=== PATIENT | male | born 1955 | race Caucasian/White ===

== ENCOUNTER 2016-08-11 14:09 | Inpatient (IN) ==
--- NOTE | 2016-08-11 14:41 | Emergency Department Note ---
Disposition Clinical Impression: Arterial occlusion Disposition: Admitted As Inpatient Forms: ED Satisfaction Letter Extremity Problem HPI - General Chief complaint: ED Extremity Problem,Nontraumatic Stated complaint: R leg pain, no pulse Time Seen by Provider: 08/11/16 14:19 Source: patient, EMS Limitations: no limitations Nursing Notes Reviewed: Yes Vital Signs Reviewed: Yes - History of Present Illness HPI Narrative: Patient presents to the complaint of acute onset left lower extremity numbness and cold limb. Patient states that he noticed that he became cold yesterday. Patient denies prior history of similar symptoms. Patient was seen at the [facility] and had ABIs done and no flow was noted the left lower extremity. Patient denies chest pain denies shortness of breath associated with this. Pain Scale: 2 - Related Data Allergies Allergy/AdvReac Type Severity Reaction Status Date / Time No Known Allergies Allergy Verified 08/11/16 01:35 All systems ED: reviewed and negative except as stated. Past Medical History - Past Medical History Source: patient Medical history: Reports: other Psychiatric history: Reports: no psych history - Social History Smoking Status: Current every day smoker Smokeless Tobacco Status: No Alcohol use: Reports: none Drug use: Reports: marijuana Physical Exam - General Limitations: no limitations General appearance: alert, in no apparent distress - Head Head exam: atraumatic, normocephalic, normal inspection - Eye Eye exam: Present: normal appearance, PERRL, EOMI - ENT ENT exam: normal exam, normal oropharynx, mucous membranes moist - Neck Neck exam: Present: normal inspection, full ROM, trachea midline - Chest Chest inspection: Present: normal inspection, symmetric chest wall rise - Respiratory Respiratory exam: Present: normal lung sounds bilaterally - Cardiovascular Cardiovascular exam: Present: regular rate, normal rhythm, normal heart sounds - Abdominal Exam Abdominal exam: Present: soft, Non-Tender. Absent: tenderness, distention, guarding, rebound, rigidity - Extremities Exam Extremities exam: Present: other (Dorsalis pedis pulse was not palpable in the left lower extremity. Cap refill is delayed and the limb is cold on The left lower extremity) - Back Exam Back exam: Present: normal inspection, full ROM. Absent: tenderness - Neurological Exam Neurological exam: Present: alert, oriented X3 - Psychiatric Psychiatric exam: Present: normal affect, normal mood - Skin Skin exam: Present: warm, dry, intact, normal color Course - Consultations Consultation #1: Dr. Bruce saw the patient and agrees to admit Vital Signs Temperature 98 F 08/11/16 14:20 Pulse Rate 63 08/11/16 14:20 Respiratory Rate 16 08/11/16 14:20 Blood Pressure 177/87 08/11/16 14:20 O2 Sat by Pulse Oximetry 96 08/11/16 14:20 Temperature 98 F 08/11/16 14:20 Pulse Rate 63 08/11/16 14:20 Respiratory Rate 16 08/11/16 14:20 Blood Pressure 177/87 08/11/16 14:20 O2 Sat by Pulse Oximetry 96 08/11/16 14:20 Oxygen Delivery Oxygen Delivery Room Air Extremity Problem, Nontraumati - Differential Diagnosis Likely: cellulitis, lower extremity edema, compartment syndrome, occult trauma, arterial vascular disorder - Lab Data Result diagrams: 08/11/16 14:43 08/11/16 14:43 Lab Results 08/11/16 08/11/16 08/11/16 Range/Units 14:43 14:43 14:43 WBC 14.0 H (4.3-11.1) K/mcL RBC 5.34 (4.19-5.50) M/mcL Hgb 16.9 (12.9-16.9) g/dL Hct 49.4 (37.5-50.1) % MCV 92.5 (83.0-100.0) fL MCH 31.6 (28.0-33.3) pg MCHC 34.2 (31.6-35.5) g/dL RDW 13.3 (11.5-14.5) % Plt Count 238 (140-400) K/mcL MPV 10.5 (9.4-12.4) fL Immature Gran % 0.4 (0-4) % Seg Neutrophils % 78.8 % Lymphocytes % 13.1 % Monocytes % 6.8 % Eosinophils % 0.6 % Basophils % 0.3 % Neutrophils # 11.1 H (1.6-8.9) K/mcL Lymphocytes # 1.8 (0.6-4.6) K/mcL Monocytes # 1.0 (0.0-1.3) K/mcL Eosinophils # 0.1 (0.0-0.6) K/mcL Basophils # 0.0 (0.0-0.2) K/mcL Sodium 142 (136-145) mEq/L Potassium 4.3 (3.5-4.5) mEq/L Chloride 104 (98-109) mEq/L Carbon Dioxide 28 (19-29) mEq/L BUN 11 (8-26) mg/dL Creatinine 0.84 (0.72-1.25) mg/dL Est GFR ( Amer) > 60 (> 60) Est GFR (Non-Af Amer) > 60 (> 60) BUN/Creatinine Ratio 13 (6-26) Glucose 92 (70-99) mg/dL Calculated Osmolality 293 (280-300) Lactic Acid 1.1 (0.5-2.2) mmol/L Calcium 10.5 (8.6-10.8) mg/dL Total Bilirubin 0.5 (0.2-1.2) mg/dL AST 17 (5-34) Units/L ALT 14 (0-55) Units/L Alkaline Phosphatase 97 (38-126) Units/L Creatine Kinase 125 (30-200) Units/L Serum Total Protein 7.9 (6.0-8.3) g/dL Albumin 4.7 (3.5-5.0) g/dL Globulin 3.2 (2.4-3.5) g/dL Albumin/Globulin Ratio 1.5 (1.1-2.2) - EKG Data EKG attestation: Yes I reviewed and interpreted this EKG. EKG shows normal: sinus rhythm Rate: normal Rhythm: NSR Critical Care Time Total Critical Care Time: 30 Attestation: Critical care performed: Time is exclusive of separately billable procedures. Time includes: direct patient care, patient reassessment, coordination of patient care, interpretation of data (laboratory data, radiology data, and respiratory data), review of patient's medical records, medical consultation and documentation of patient care. Procedures included in critical care time: Procedures excluded from critical care time:
[2016-08-11 14:52] LABS: Basophils % 0.3 %; Eosinophils # 0.1 K/mcL (0.0-0.6); Eosinophils % 0.6 %; Hematocrit 49.4 % (37.5-50.1); Hemoglobin 16.9 g/dL (12.9-16.9); Immature Granulocytes % 0.4 % (0-4); Lymphocytes # 1.8 K/mcL (0.6-4.6); Lymphocytes % 13.1 %; Mean Corpuscular HGB Conc 34.2 g/dL (31.6-35.5); Mean Corpuscular Hemoglobin 31.6 pg (28.0-33.3); Mean Corpuscular Volume 92.5 fL (83.0-100.0); Mean Platelet Volume 10.5 fL (9.4-12.4); Monocytes % 6.8 %; Neutrophils # 11.1 K/mcL (1.6-8.9); Platelet Count 238 K/mcL (140-400); Red Blood Count 5.34 M/mcL (4.19-5.50); Red Cell Distribution Width 13.3 % (11.5-14.5); Segmented Neutrophils % 78.8 %
[2016-08-11 15:07] LABS: Alanine Aminotransferase 14 Units/L (0-55); Albumin 4.7 g/dL (3.5-5.0); Albumin/Globulin Ratio 1.5 (1.1-2.2); Alkaline Phosphatase 97 Units/L (38-126); Aspartate Amino Transferase 17 Units/L (5-34); BUN/Creatinine Ratio 13 (6-26); Bilirubin,Total 0.5 mg/dL (0.2-1.2); Blood Urea Nitrogen 11 mg/dL (8-26); Calcium 10.5 mg/dL (8.6-10.8); Carbon Dioxide 28 mEq/L (19-29); Chloride 104 mEq/L (98-109); Creatine Kinase 125 Units/L (30-200); Globulin 3.2 g/dL (2.4-3.5); Glucose 92 mg/dL (70-99); Osmolality,Calculated 293 (280-300); Potassium 4.3 mEq/L (3.5-4.5); Sodium 142 mEq/L (136-145); Total Protein 7.9 g/dL (6.0-8.3); eGFR For African Americans > 60 (> 60); eGFR For Non-African Americans > 60 (> 60)
--- NOTE | 2016-08-11 16:14 | Vascular/Endovascular H&P ---
Date of Encounter: 08/11/16 Time of Encounter: 16:00 Assessment and Plan (1) Ischemia of left lower extremity Current Visit: Yes Status: Acute With an absent femoral pulse and previous claudication, I believe this is acute on chronic ischemia. He will be admitted and placed on weight dose IV heparin and we will obtain a CTA aortogram with runoff for operative planning. We had an initial discussion about the risk of amputation and smoking cessation History of Present Illness Chief complaint: Left leg is numb HPI: Mr. Solano is a 61 year old male Who has complained about nonspecific claudication for some time. No previous vascuar surgery He noted that his foot was numb last evening and sought evaluation at the [facility]. No blood flow was noted in the left leg with an SHIVANI of zero on the left and 1.07 on the right. He states he had constant pain on the dorsum of the left foot and the medial aspect of the left calf. He smokes 1.5 ppd, greater than 60 pack years. No diabetes. No ulcers on the foot , No hair below the mid-calf Past Med Surg Social Fam HX - Past Medical History Medical history: other (admission for staph infection a few years ago) Psychiatric history: no psych history - Social History Smoking Status: Current every day smoker Smokeless Tobacco Status: No Alcohol use: none Drug use: marijuana Medications and Allergies Allergies No Known Allergies Allergy (Verified 08/11/16 01:35) All Systems Review: A 10-system review of systems was performed and is negative for pertinent findings except as documented above in the HPI. He denies shakes, chills, or fevers. He denies chest pain or breathing problems. He denies infectious disorders such as HIV, hepatitis or tuberculosis Exam Vital Signs, Last 4 Hours Temp Pulse Resp BP Pulse Ox 08/11/16 14:20 98 F 63 16 177/87 96 General: Present: Conversant, No Apparent Distress HEENT: Present: Atraumatic, Normocephaly, Pupils equal Cardiac: Present: Reg Rate and Rhythm, Normal S1 and S2, No Murmur Lungs: Present: Other (bilateral mild rhonchi) Neuro: Present: Alert and responsive, No focal deficits noted, Other ( proprioception of the left great toe is intact) Abdomen: Present: Soft, Non-tender Vascular: Present: Pulse, absent (left femoral and distal. left foot is cool. Right femoral and posterior tibial are normal) Skin: Present: No rashes noted on visualized skin Musculoskeletal: Present: No Chest Wall Tenderness Results 08/11/16 14:43 08/11/16 14:43 Lab Results, Last 24 hours 08/11/16 08/11/16 14:43 14:43 WBC 14.0 H Hgb 16.9 Hct 49.4 Plt Count 238 Sodium 142 Potassium 4.3 Chloride 104 Carbon Dioxide 28 BUN 11 Creatinine 0.84 Glucose 92 Calcium 10.5 Total Bilirubin 0.5 AST 17 ALT 14 Alkaline Phosphatase 97
[2016-08-11] MEDS ORDERED: *HR* OxyCODONE/APAP 10/325 TABLET PO ONE ×2 (16:27→19:00)
[2016-08-11] MEDS ORDERED: *HR* Heparin 5,000 UNIT/ML VIAL IVP PRN ×3 (16:28→19:00)
[2016-08-11] MEDS ORDERED: *HR* Heparin 5,000 UNIT/ML VIAL IVP ONE ×2 (16:28→19:00)
[2016-08-11] MEDS ORDERED: 0.9 % Sodium Chloride 1,000 ML IVC SCH (16:30)
[2016-08-11] MEDS ORDERED: Heparin 25,000 UNIT/500 ML D5W 25,000 UNIT/500 ML MLS IVC SCH (16:30)
[2016-08-11 16:50] LABS: Hematocrit 47.6 % (37.5-50.1); Hemoglobin 16.5 g/dL (12.9-16.9); Mean Corpuscular HGB Conc 34.7 g/dL (31.6-35.5); Mean Corpuscular Hemoglobin 31.8 pg (28.0-33.3); Mean Corpuscular Volume 91.7 fL (83.0-100.0); Mean Platelet Volume 10.7 fL (9.4-12.4); Platelet Count 233 K/mcL (140-400); Red Blood Count 5.19 M/mcL (4.19-5.50); Red Cell Distribution Width 13.2 % (11.5-14.5)
[2016-08-11 16:56] LABS: INR 1.2; Prothrombin Time 12.8 Seconds (9.4-12.1)
[2016-08-11 16:59] LABS: Activated Partial Thrombo Time 29.3 Seconds (26.0-36.0)
--- NOTE | 2016-08-11 17:46 | Arterial Study Report ---
LE Arterial Duplex Patient Name:Shukri Solano Order Number:[id number] Procedure Date:08/11/2016 Date:1955ge:61 yrs Gender:Male Rt.BP:177 / 87 mmHgHeart Rate: Location:[facility] ED Room #: ED7 Product Marketing Manager:Juliet Acosta RDCS Referring MD:Omar Gray MD obstetrics gyn:[facility] Cruz MD:Kunal Manzano MD Primary Indications:No Pulse LLE Risk Factors Yes/No Smoking Current Yes Impressions: The left lower extremity is hemodynamically well maintained. No stenosis detected. Recommendations: Test completed on 08/11/2016 at 3:42:00 pm. Critical findings reported to Dr Gray in person at 3:45:00 pm on 08/11/2016 by Juliet Acosta RDCS. Findings Prior Study: No prior study available for comparison. LE Duplex Side Vessel PSV EDV Assessment Left Distal External Iliac 21 6 Left Common Femoral 32 11 Left Prox Superficial Femoral 27 11 Left Mid Superficial Femoral 27 8 Left Popliteal 14 5 Left Distal Superficial Femoral 19 6 Left Distal Posterior Tibial 5 3 Left Distal Peroneal 4 3 Updated by Kunal Manzano MD on 08/11/2016 5:41:12 PM electronically signed on 08/11/2016 5:41:27 PM with status of Final
[2016-08-11] MEDS: 0.9 % Sodium Chloride 1,000 ML IVC SCH (20:28)
[2016-08-11] MEDS: Heparin 25,000 UNIT/500 ML D5W 25,000 UNIT/500 ML MLS IVC SCH (20:29)
[2016-08-11] MEDS: *HR* Heparin 5,000 UNIT/ML VIAL IVP PRN (23:10)
[2016-08-12] MEDS: 0.9 % Sodium Chloride 1,000 ML IVC SCH ×2 (02:46→11:45)
[2016-08-12] MEDS: *HR* HYDROmorphone (PF) 1 MG/ML SYRINGE IVP PRN ×4 (04:45→14:48)
--- NOTE | 2016-08-12 07:33 | General Surgery Progress Note ---
<Jason De La Fuente - Last Filed: 08/12/16 08:21> Date of Encounter: 08/12/16 Time of Encounter: 07:25 - Assessment and Plan (1) Ischemia of left lower extremity Current Visit: Yes Status: Acute Absent femoral pulse on the left. CTA aortogram with runoff demonstrated left common iliac and external iliac arterial occlusion with reconstitution of the common femoral artery and occlusion of the left popliteal artery. Planned vascular surgery at 5pm today of left iliac thrombectomy with stent and possible fem-fem bypass. Additionally any necessary procedure to restore blood flow to the left leg. The heparin drip is not to be stopped prior to going to the OR. He is to remain on the heparin drip with weight base dosing. NPO for surgery. Procedure with risks explained to the patient and consent signed. Subjective Patient reports: feels better, still having pain, pain is less, voiding w/o difficulty, afebrile Narrative: Pain has improved, patient still reports some coolness of the left lower extremity with decreased sensation and some numbness and tingling. Objective Vital Signs - Last 8 Hours Temp Pulse Resp BP Pulse Ox 08/12/16 07:01 97.9 F 68 16 185/94 96 08/12/16 04:18 97.8 F 56 16 164/83 96 Intake and Output 08/11/16 08/11/16 08/12/16 15:59 23:59 07:59 Intake Total 60 / 60 1130 / 1130 Output Total 525 / 525 600 / 600 Balance -465 / -465 530 / 530 Intake: IV Fluids 60 / 60 1130 / 1130 0.9 % Sodium Chloride 1, 1000 / 1000 000 ML @ 100 mls/hr IVC . Q10H BRETT Rx#:[id number] Heparin 25,000 UNIT/500 60 / 60 130 / 130 ML D5W 25,000 unit In 500 ml @ 14 UNIT/KG/HR 22.48 mls/hr IVC .[id number] BRETT Rx#:[id number] Output: Urine 525 / 525 600 / 600 Other: Weight 78.6 kg Blood Glucose* 111 Patient Weight 08/12/16 23:59 Weight 78.6 kg - General physical appearance well developed, well nourished, no distress - Eyes normal ocular movement - ENT normal mucosa - Neck Neck exam: trachea midline - Respiratory normal respiratory effort, clear to auscultation - Cardiovascular Cardiovascular exam: Present: RRR - Abdomen Abdomen: Present: bowel sounds present, soft, non tender - Integumentary other (left foot appears more pale when lifted up onto the hospital bed than the right.) - Musculoskeletal normal posture - Psychiatric oriented to time, oriented to person, oriented to place, speech is normal, memory intact - Labs 08/11/16 16:42 08/11/16 14:43 - VTE Reasons for not Prescribing Prophylaxis: Not indicated-Anticoagulated or INR therapeutic Consult Discharge Plan - Plan Referrals: Jermaine Bruce MD [Partnered Physician] - (SENT WEB REQUEST ON 08-12-16 @ [id number]) [facility] [Primary Care Provider] - 08/27/16 9:30 am - Attending Attestation I examined this patient and my medical decision-making was reviewed with the PROPERTY VALUER/PA/Advanced Practice Nurse/Resident Physician. I agree with the documented findings, disposition and treatment plan as described except to the extent set forth below. <Jermaine Bruce - Last Filed: 08/12/16 14:52> Date of Encounter: 08/12/16 - Assessment and Plan (1) Ischemia of left lower extremity Current Visit: Yes Status: Acute Objective Vital Signs - Last 8 Hours Temp Pulse Resp BP Pulse Ox 08/12/16 12:00 98 F 83 16 160/91 96 08/12/16 11:00 98 F 83 16 160/91 96 08/12/16 07:30 97.9 F 68 16 185/94 96 08/12/16 07:01 97.9 F 68 16 185/94 96 Intake and Output 08/11/16 08/12/16 08/12/16 23:59 07:59 15:59 Intake Total 60 / 60 1130 / 1130 1137 / 1137 Output Total 525 / 525 900 / 900 250 / 250 Balance -465 / -465 230 / 230 887 / 887 Intake: IV Fluids 60 / 60 1130 / 1130 1137 / 1137 0.9 % Sodium Chloride 1, 1000 / 1000 1000 / 1000 000 ML @ 100 mls/hr IVC . Q10H BRETT Rx#:[id number] Heparin 25,000 UNIT/500 60 / 60 130 / 130 137 / 137 ML D5W 25,000 unit In 500 ml @ 14 UNIT/KG/HR 22.48 mls/hr IVC .[id number] BRETT Rx#:[id number] Oral 0 / 0 0 / 0 Output: Urine 525 / 525 900 / 900 250 / 250 Other: Meal NPO Percent of Meal Consumed 0% Weight 78.6 kg Blood Glucose* 111 106 Patient Weight 08/12/16 23:59 Weight 78.6 kg - Labs 08/11/16 16:42 08/11/16 14:43 - Attending Attestation Jermaine Bruce MD FACS
[2016-08-12] MEDS ORDERED: Lidocaine -MPF 4% 5 ML AMPUL ONE ×2 (10:28→16:45)
[2016-08-12] MEDS ORDERED: *HR* Phenylephrine 10 MG/ML VIAL ONE (10:32)
[2016-08-12] MEDS ORDERED: *HR* Succinylcholine 200 MG/10 ML VIAL IVP ONE ×2 (10:32→16:43)
[2016-08-12] MEDS ORDERED: Lidocaine -MPF 2% 2 ML VIAL ONE ×3 (10:34→16:59)
--- NOTE | 2016-08-12 10:45 | Anesthesia Evaluation PreOp ---
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 Other Medical History: Denies Any Significant HX Anesthesia History: No Prior Anesthetic Complications, Past Anesthesia Alcohol Use: none Drug use: marijuana Medications and Allergies No Known Home Drugs 08/11/16 [History] Allergies No Known Allergies Allergy (Verified 08/11/16 01:35) - Meds/Allergy Pre-op Review Medications Reviewed: Yes Allergies Reviewed: Yes Beta Blockers on Current Med List: No Anesthesia Results - Labs 08/11/16 16:42 08/11/16 14:43 - Imaging EKG: report reviewed (sr, pvc) Anesthesia Exam O2 Sat Height 1.78 m Weight 78.6 kg Weight 80.286 kg O2 Sat by Pulse Oximetry 96 O2 Sat by Pulse Oximetry 96 O2 Sat by Pulse Oximetry 96 O2 Sat by Pulse Oximetry 94 O2 Sat by Pulse Oximetry 91 O2 Sat by Pulse Oximetry 94 O2 Sat by Pulse Oximetry 94 O2 Sat by Pulse Oximetry 96 Vital Signs Temp Pulse Resp BP Pulse Ox 98 F 63 16 177/87 96 08/11/16 14:20 08/11/16 14:20 08/11/16 14:20 08/11/16 14:20 08/11/16 14:20 Height: 1.78 Weight: 78 NPO (# of Hours): >8 - HEENT Pupil (Motor): Pupils equal, EOMI Mallampati: II Teeth: Edentulous Oral Opening: Greater than 3 - 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
[2016-08-12] MEDS: *HR* Heparin 5,000 UNIT/ML VIAL IVP PRN (11:02)
[2016-08-12] MEDS: Heparin 25,000 UNIT/500 ML D5W 25,000 UNIT/500 ML MLS IVC SCH ×2 (11:58→23:56)
[2016-08-12 14:47] LABS: Activated Partial Thrombo Time 125.8 Seconds (26.0-36.0)
[2016-08-12 15:02] LABS: Heparin anti-factor XA UFH 0.8 IU/mL (0.30-0.70)
[2016-08-12] MEDS ORDERED: Water for inj. (sterile) 10 ML IV ONE (15:30)
[2016-08-12] MEDS ORDERED: Heparin 1,000 UNITS/500 mL NS 1,500 ML ONE (15:30)
[2016-08-12] MEDS ORDERED: *HR* FentaNYL (PF) 100 MCG/2 ML VIAL ONE ×2 (16:41→18:09)
[2016-08-12] MEDS ORDERED: *HR* Midazolam HCl 2 MG/2 ML VIAL ONE (16:41)
[2016-08-12] MEDS ORDERED: *HR* Propofol 200 MG/20 ML VIAL IVP ONE (16:42)
[2016-08-12] MEDS ORDERED: *HR* Rocuronium Bromide 50 MG/5 ML VIAL ONE (16:44)
[2016-08-12] MEDS ORDERED: NiCARdipine 2.5 MG/10 ML Syringe IVPB ONE (16:52)
[2016-08-12] MEDS ORDERED: EPHEDrine 50 MG/ML VIAL ONE (16:53)
[2016-08-12] MEDS ORDERED: Heparin 1,000 UNITS/500 mL NS 500 ML ONE (17:50)
[2016-08-12] MEDS ORDERED: *HR* Heparin 5,000 UNIT/ML VIAL ONE (18:02)
[2016-08-12] MEDS ORDERED: Dexamethasone 4 MG/ML VIAL ONE (18:21)
[2016-08-12] MEDS ORDERED: Ondansetron 4 MG/2 ML VIAL ONE (18:21)
[2016-08-12] MEDS ORDERED: Acetaminophen IV 1,000 MG/100 ML INFUS..BTL ONE (19:26)
[2016-08-12] MEDS ORDERED: *HR* HYDROmorphone 2 MG/ML SYRINGE ONE (19:59)
--- NOTE | 2016-08-12 20:15 | Operative Note ---
Date of procedure: 08/12/16 Pre-op diagnosis: Critical left lower leg ischemia Post-op diagnosis: other (#1 distal popliteal thrombus #2 occluded common and external iliac, left) Procedure: #1. Femoral tibial thrombectomy, left. #2. Left iliac thrombectomy and attempted angioplasty. #3. Left femoral endarterectomy. #4. Femoral-femoral bypass with 8 mm PTFE Implants: 8 mm externally supported PTFE graft Anesthesia: GETA Surgeon: Jermaine Bruce Estimated blood loss (cc): 100 Condition: stable Disposition: PACU Procedure in Detail: After informed consent the patient states major operative suite and placed supine position given adequate general endotracheal anesthesia. Horner catheter was placed. He was placed on the vascular bed for x-ray. Timeout was taken patient was identified. Both groins and circumferential left leg were prepped and draped in sterile fashion utilizing Betadine solution and sterile draping techniques. I made an oblique incision in the left groin and dissected down to be pulseless left femoral artery. I surrounded the common femoral, profunda femoris, and superficial femoral artery as well as the circumflex iliac collaterals. This was done with Guzman ligatures. The patient was given 2000 additional units of IV heparin in addition to his IV drip. I opened the artery axially. There was thrombus covering a ruptured femoral plaque just proximal to the profunda. This is heavily calcified. I performed a distal thrombectomy. Using a #4 and #3 Tonja catheter was able to pass the catheter all the way into the foot and I recovered thrombus on 2 passes. I had 2 passes with no thrombus area I instilled intra-arterial TPA. I then turned my attention to the iliac artery was able to advance a #4 Tonja catheter about 12 cm in the artery. I removed thrombus. I got some backbleeding from the internal iliac artery. I then placed a #7 sheath. Using fluoroscopy for guidance I then used 3 different wires to try and advance into the aorta. I used a combination of Glidewire, a Villasenor wire, and measurement wire all failed to advance into the aorta. I used all 3 wires alone and in conjunction with a guide catheter to try and probe the area of occlusion in the proximal common iliac artery. I was unable to gain access into the aorta after 30 minutes of attempted iliac. I aborted the procedure and the attempt to gain patency of the hamilton vessels. The 7-Iraqi introducer was removed. I opened the right groin with an oblique incision and dissected down to the right common femoral artery. This revealed the common femoral, superficial femoral, and profunda femoris with Guzman ligatures. I passed a 8 mm externally supported PTFE graft in the subfascial plane from right to left. The placement was perfect. I then addressed the complex hemorrhagic plaque in the left common femoral artery. Endarterectomy was performed. There were excellent break points the intima just proximal to the profunda and superficial femoral artery takeoffs and the intima was adherent and did not require any tacking stitches. I extended the arteriotomy well distal of the intima break point on the superficial femoral artery. Using 2.8x magnification, I performed an anastomosis between the PTFE graft and the left common femoral artery extending down on to the superficial femoral artery. This gave an excellent technical result. Prior to closure I back bled the profunda femoris and superficial femoral artery and got back bleeding from both. There was no evidence of thrombus. I tied the 5-0 Prolene and clamped the graft with a Tonja-Hydragrip clamp. Attention was then turned to the right groin. I brought the graft out to length. I opened the right common femoral artery area there was essentially no calcific plaque in this area. I created a cobra morillo on the PTFE graft and used 5-0 Prolene to create an anastomosis between the PTFE graft and the common femoral artery. Prior to closure all vessels were forward flushed and backbled. I closed the suture line then opened the right common femoral first to the profunda and then to the superficial femoral artery and finally to the femoral-femoral bypass graft. Doppler evaluation of the superficial femoral arteries demonstrated pulsatile blood flow in all measured vessels. All wounds were irrigated with copious amounts of antibiotic containing solution. All wounds were closed in multiple layers with interrupted Vicryl. The patient was transferred to recovery in stable condition
--- NOTE | 2016-08-12 21:27 | Anesthesia Evaluation Post Op ---
Date of Encounter: 08/12/16 Time of Encounter: 21:10 - Vital Signs Vital Signs: Vital Signs/O2 Sat/Glucose, Most Current Temp Pulse Resp BP Pulse Ox 08/12/16 21:10 98.2 F 80 16 152/78 92 L 08/12/16 21:00 98.2 F 83 16 158/77 95 08/12/16 20:50 84 16 149/77 95 08/12/16 20:40 86 16 160/80 96 08/12/16 20:30 98 F 117 16 157/83 96 - Lungs Lungs: Clear Ascult./Percussion - Airway Airway: Non-obstructed - Cardiovascular Baseline Rhythm - Mental Status Mental Status: Alert & Oriented, Answers Appropriately - Pain Pain Scale: 0 - Nausea Vomiting Nausea Vomiting: Not Present - Hydration Hydration: NPO - Discharge PostOp Status: Transfer Patient to floor
[2016-08-12] MEDS ORDERED: *HR* Heparin 5,000 UNIT/ML VIAL IVP PRN (21:43)
[2016-08-12 22:54] LABS: Activated Partial Thrombo Time 165.8 Seconds (26.0-36.0)
[2016-08-12 23:00] LABS: Heparin anti-factor XA UFH 0.96 IU/mL (0.30-0.70)
[2016-08-13] MEDS: ceFAZolin 2,000 MG in D5% in Water 100 ML IVPB SCH ×2 (00:11→07:33)
[2016-08-13] MEDS: *HR* HYDROmorphone (PF) 1 MG/ML SYRINGE IVP PRN ×8 (00:54→21:50)
[2016-08-13] MEDS: 0.9 % Sodium Chloride 1,000 ML IVC SCH ×3 (02:22→22:36)
[2016-08-13] MEDS: *HR* Heparin 5,000 UNIT/ML VIAL IVP PRN ×2 (06:03→15:00)
--- NOTE | 2016-08-13 07:36 | General Surgery Progress Note ---
<Jason De La Fuente - Last Filed: 08/13/16 13:30> Date of Encounter: 08/13/16 Time of Encounter: 07:05 - Assessment and Plan (1) Ischemia of left lower extremity Current Visit: Yes Status: Acute POD #1 left femoral tibial thrombectomy with left femoral endarterectomy and fem -fem bypass with 8mm PTFE. Continue Heparin drip today with transition to aspirin and plavix tomorrow. Patient orders to ambulate today. Discontinue conde. Regular diet ordered. The patient is on Ancef that is to be discontinued after 2 bags. Continue pain control. Subjective Patient reports: no new complaints, feels better, no flatus, no bowel movement, afebrile Objective Vital Signs - Last 8 Hours Temp Pulse Resp BP Pulse Ox 08/13/16 04:51 98.3 F 89 16 154/81 92 L 08/13/16 04:30 79 16 150/88 93 L 08/13/16 03:17 84 18 164/91 94 L 08/13/16 02:15 75 18 175/83 93 L 08/13/16 01:15 68 18 141/72 95 08/13/16 00:15 69 18 144/80 96 08/12/16 23:45 65 18 143/73 Intake and Output 08/12/16 08/12/16 08/13/16 15:59 23:59 07:59 Intake Total 1137 / 1137 100 / 100 257 / 257 Output Total 250 / 250 2325 / 2325 1150 / 1150 Balance 887 / 887 -2225 / -2225 -893 / -893 Intake: IV Fluids 1137 / 1137 100 / 100 257 / 257 0.9 % Sodium Chloride 1, 1000 / 1000 000 ML @ 100 mls/hr IVC . Q10H BRETT Rx#:[id number] Heparin 25,000 UNIT/500 137 / 137 100 / 100 157 / 157 ML D5W 25,000 unit In 500 ml @ 14 UNIT/KG/HR 22.48 mls/hr IVC .[id number] BRETT Rx#:[id number] Ancef 2,000 MG In 100 / 100 Dextrose 5% 100 ML @ 200 mls/hr IVPB Q8HR BRETT Rx#: [id number] Oral 0 / 0 Output: Urine 250 / 250 Estimated Blood Loss 100 / 100 Urine Amount (Catheter) 1575 / 1575 Catheter 650 / 650 1150 / 1150 Other: Weight 79.6 kg Blood Glucose* 78 128 Patient Weight 08/13/16 23:59 Weight 79.6 kg - General physical appearance well developed, well nourished, no distress - Eyes normal ocular movement - ENT normal mucosa - Neck Neck exam: trachea midline - Respiratory normal respiratory effort, clear to auscultation - Abdomen Abdomen: Present: bowel sounds present, soft, non tender - Integumentary no rash, other (bilateral dressings in the inguinal region, which are clean and dry. Expected reperfusion hyperemia of the left lower extremity.) - Neurologic CN 2-12 grossly intact - Musculoskeletal normal posture - Psychiatric oriented to time, oriented to person, oriented to place, speech is normal, memory intact - Labs 08/11/16 16:42 08/11/16 14:43 - VTE Reasons for not Prescribing Prophylaxis: Not indicated-Anticoagulated or INR therapeutic Consult Discharge Plan - Plan Additional Instructions: Followup with your scheduled outpatient appointment on 08/19/16 at 3:50pm. Referrals: Jermaine Bruce MD [Partnered Physician] - 08/19/16 3:50 pm () [place],PCP [Primary Care Provider] - 08/27/16 9:30 am Prescriptions: OxyCODONE/APAP 5/325 [Percocet 5/325 MG] 1 each PO Q6HR PRN #30 tablet PRN Reason: Pain Aspirin 81 mg PO DAILY #30 tab.chew Clopidogrel [Plavix] 75 mg PO DAILY #30 tablet Docusate [Colace] 100 mg PO BID #30 capsule - Attending Attestation I examined this patient and my medical decision-making was reviewed with the [employer]/PA/Advanced Practice Nurse/Resident Physician. I agree with the documented findings, disposition and treatment plan as described except to the extent set forth below. <Jermaine Bruce - Last Filed: 08/14/16 12:55> - Assessment and Plan (1) Ischemia of left lower extremity Current Visit: Yes Status: Acute Objective Vital Signs - Last 8 Hours Temp Pulse Resp BP Pulse Ox 08/14/16 11:16 98.6 F 73 18 125/73 95 08/14/16 11:03 16 97 08/14/16 08:49 72 08/14/16 07:33 98.7 F 81 18 135/73 96 Intake and Output 08/13/16 08/14/16 08/14/16 23:59 07:59 15:59 Intake Total 1860 / 1860 512 / 512 2270 / 2270 Output Total 450 / 450 2225 / 2225 600 / 600 Balance 1410 / 1410 -1713 / -1713 1670 / 1670 Intake: IV Fluids 1180 / 1180 272 / 272 30 / 30 0.9 % Sodium Chloride 1, 1000 / 1000 000 ML @ 100 mls/hr IVC . Q10H BRETT Rx#:[id number] Heparin 25,000 UNIT/500 180 / 180 272 / 272 30 / 30 ML D5W 25,000 unit In 500 ml @ 14 UNIT/KG/HR 22.48 mls/hr IVC .[id number] BRETT Rx#:[id number] Oral 680 / 680 240 / 240 2240 / 2240 Output: Urine 450 / 450 2225 / 2225 600 / 600 Other: Meal Dinner Breakfast Percent of Meal Consumed 100% 100% Weight 78.8 kg Blood Glucose* 95 111 93 Patient Weight 08/14/16 23:59 Weight 78.8 kg - Labs 08/14/16 09:24 08/11/16 14:43 - Attending Attestation The patient is seen and evaluated today. His leg is warm with good pulses. He is beginning to ambulate. Am very pleased with his overall clinical course. We will continue IV heparin today. We will plan on starting aspirin and Plavix tomorrow. If he is afebrile he will be able to be discharged tomorrow. Jermaine Bruce MD FACS
[2016-08-13] MEDS: Heparin 25,000 UNIT/500 ML D5W 25,000 UNIT/500 ML MLS IVC SCH (10:52)
--- NOTE | 2016-08-13 19:32 | Electrocardiograph Report ---
[address] [address] Test Date: 2016-08-11 Pat Name: Shukri Solano Department: 105 Room: 2N04 Gender: M Hematology Specialist: : [id number] Requested By: Omar Gray Order Number: [id number] Reading MD: Nakul Owens Measurements Intervals [place] Rate: 77 P: 63 IN: 179 QRS: 46 QRSD: 97 T: 63 QT: 378 QTc: 409 Interpretive Statements SINUS RHYTHM WITH OCCASIONAL VENTRICULAR PREMATURE COMPLEXES Electronically Signed On 08-13-2016 19:31:25 EST by Nakul Owens
[2016-08-14] MEDS: Heparin 25,000 UNIT/500 ML D5W 25,000 UNIT/500 ML MLS IVC SCH (06:01)
--- NOTE | 2016-08-14 08:12 | General Surgery Progress Note ---
Addendum entered and electronically signed by Jason De La Fuente DO 08/14/16 10: 49: chest x-ray did not demonstrate any acute cardiopulmonary process, but the patient had an elevated white count of 13.5. The patient was started on Ciprofloxacin 500mg BID started and additional testing of UA was ordered. Albuterol nebs q6 and incentive spirometry ordered. Original Note: <Jason De La Fuente - Last Filed: 08/14/16 08:10> Date of Encounter: 08/14/16 Time of Encounter: 06:40 - Assessment and Plan (1) Ischemia of left lower extremity Current Visit: Yes Status: Acute POD #2 left femoral tibial thrombectomy with left femoral endarterectomy and fem -fem bypass with 8mm PTFE. Transition to aspirin and plavix today. Heparin to be discontinued after the first dose of aspirin and plavix has been given. Patient orders to ambulate today. Regular diet ordered. Ancef has been discontinued. Continue pain control. (2) Fever Current Visit: Yes Status: Acute Tmax of 101.7 just after midnight on 08/14. Resolved at this time with current temperature of 99.6. Chest x-ray 2 view. CBC Continue to monitor. Qualifiers: Fever type: unspecified Qualified Code(s): R50.9 - Fever, unspecified Subjective Patient reports: no new complaints, still having pain, tolerating a regular diet , voiding w/o difficulty, flatus, no bowel movement, fever Narrative: The patient had a fever last night but denies any chills, nausea, or vomiting at that time. He states he continues to feel as if he is improving and has some soreness around the surgical sites. Objective Vital Signs - Last 8 Hours Temp Pulse Resp BP Pulse Ox 08/14/16 07:33 98.7 F 81 18 135/73 96 08/14/16 04:42 99.6 F 80 18 151/75 95 08/14/16 04:01 86 08/14/16 00:17 101.7 F H 98 16 140/64 93 L Intake and Output 08/13/16 08/14/16 08/14/16 23:59 07:59 15:59 Intake Total 1860 / 1860 512 / 512 Output Total 450 / 450 2225 / 2225 Balance 1410 / 1410 -1713 / -1713 Intake: IV Fluids 1180 / 1180 272 / 272 0.9 % Sodium Chloride 1, 1000 / 1000 000 ML @ 100 mls/hr IVC . Q10H BRETT Rx#:[id number] Heparin 25,000 UNIT/500 180 / 180 272 / 272 ML D5W 25,000 unit In 500 ml @ 14 UNIT/KG/HR 22.48 mls/hr IVC .[id number] BRETT Rx#:[id number] Oral 680 / 680 240 / 240 Output: Urine 450 / 450 2225 / 2225 Other: Meal Dinner Percent of Meal Consumed 100% Weight 78.8 kg Blood Glucose* 95 111 Patient Weight 08/14/16 23:59 Weight 78.8 kg - General physical appearance well developed, well nourished, no distress - Eyes normal ocular movement - ENT normal mucosa - Neck Neck exam: trachea midline - Respiratory normal respiratory effort, clear to auscultation - Cardiovascular Cardiovascular exam: Present: RRR - Abdomen Abdomen: Present: bowel sounds present, soft, non tender - Incision Incision: Present: clean and dry, intact - Genitourinary other (Scrotal hematoma present) - Integumentary no rash - Neurologic CN 2-12 grossly intact - Musculoskeletal normal posture - Psychiatric oriented to time, oriented to person, oriented to place, speech is normal, memory intact - Labs 08/11/16 16:42 08/11/16 14:43 - VTE Reasons for not Prescribing Prophylaxis: Not indicated-Anticoagulated or INR therapeutic Consult Discharge Plan - Plan Additional Instructions: Followup with your scheduled outpatient appointment on 08/19/16 at 3:50pm. Referrals: Jermaine Bruce MD [Partnered Physician] - 08/19/16 3:50 pm () [place],PCP [Primary Care Provider] - 08/27/16 9:30 am Prescriptions: OxyCODONE/APAP 5/325 [Percocet 5/325 MG] 1 each PO Q6HR PRN #30 tablet PRN Reason: Pain Aspirin 81 mg PO DAILY #30 tab.chew Clopidogrel [Plavix] 75 mg PO DAILY #30 tablet Docusate [Colace] 100 mg PO BID #30 capsule <Jermaine Bruce - Last Filed: 08/14/16 13:06> - Assessment and Plan (1) Ischemia of left lower extremity Current Visit: Yes Status: Acute The patient was seen and evaluated with the resident on morning rounds. Since his temperature was 101.5 last evening I have recommended a chest x-ray as well as follow-up urinalysis. His white blood cell count was slightly elevated. Because of Lejunior-Jose graft material being placed 48 hours ago, of recommended starting ciprofloxacin to protect the graft. It is noted that he also has some scrotal hematoma. I did have to tunnel the graft while the patient was heparinized. Because of this he may have a small retroperitoneal hematoma in this may have resulted in his fever and leukocytosis. We will watch him closely over the next several days. Jermaine Bangura MD FACS Objective Vital Signs - Last 8 Hours Temp Pulse Resp BP Pulse Ox 08/14/16 11:16 98.6 F 73 18 125/73 95 08/14/16 11:03 16 97 08/14/16 08:49 72 08/14/16 07:33 98.7 F 81 18 135/73 96 Intake and Output 08/13/16 08/14/16 08/14/16 23:59 07:59 15:59 Intake Total 1860 / 1860 512 / 512 2270 / 2270 Output Total 450 / 450 2225 / 2225 600 / 600 Balance 1410 / 1410 -1713 / -1713 1670 / 1670 Intake: IV Fluids 1180 / 1180 272 / 272 30 / 30 0.9 % Sodium Chloride 1, 1000 / 1000 000 ML @ 100 mls/hr IVC . Q10H BRETT Rx#:[id number] Heparin 25,000 UNIT/500 180 / 180 272 / 272 30 / 30 ML D5W 25,000 unit In 500 ml @ 14 UNIT/KG/HR 22.48 mls/hr IVC .[id number] BRETT Rx#:[id number] Oral 680 / 680 240 / 240 2240 / 2240 Output: Urine 450 / 450 2225 / 2225 600 / 600 Other: Meal Dinner Breakfast Percent of Meal Consumed 100% 100% Weight 78.8 kg Blood Glucose* 95 111 93 Patient Weight 08/14/16 23:59 Weight 78.8 kg - Labs 08/14/16 09:24 08/11/16 14:43
[2016-08-14] MEDS: Aspirin 81 MG TAB.CHEW PO SCH (08:35)
--- NOTE | 2016-08-14 09:02 | Discharge Summary ---
<Jason De La Fuente - Last Filed: 08/14/16 10:52> - Discharge Diagnosis (1) Ischemia of left lower extremity Priority: Primary Status: Acute (2) Fever Priority: Secondary Status: Acute Qualifiers: Fever type: unspecified Qualified Code(s): R50.9 - Fever, unspecified - Discharge Medications Prescriptions: OxyCODONE/APAP 5/325 [Percocet 5/325 MG] 1 each PO Q6HR PRN #30 tablet PRN Reason: Pain Aspirin 81 mg PO DAILY #30 tab.chew Clopidogrel [Plavix] 75 mg PO DAILY #30 tablet Docusate [Colace] 100 mg PO BID #30 capsule Home Medications: Aspirin 81 mg PO DAILY #30 tab.chew 08/14/16 [Rx] Clopidogrel [Plavix] 75 mg PO DAILY #30 tablet 08/14/16 [Rx] Docusate [Colace] 100 mg PO BID #30 capsule 08/14/16 [Rx] OxyCODONE/APAP 5/325 [Percocet 5/325 MG] 1 each PO Q6HR PRN #30 tablet 08/14/16 [Rx] Allergies/Adverse Reactions: Allergies No Known Allergies Allergy (Verified 08/11/16 01:35) General Surgery Exam Initial Vital Signs Temp Pulse Resp BP Pulse Ox 98 F 63 16 177/87 96 08/11/16 14:20 08/11/16 14:20 08/11/16 14:20 08/11/16 14:20 08/11/16 14:20 - General physical appearance well developed, well nourished, no distress - Eyes PERRL, normal ocular movement - ENT normal mucosa - Neck trachea midline - Respiratory normal respiratory effort, clear to auscultation - Cardiovascular Cardiovascular exam: Present: RRR - Abdomen Abdomen general surgery: Present: bowel sounds present, soft, non tender - Incision Incision: Present: clean and dry, intact - Genitourinary Present: other (scrotal hematoma present) - Integumentary Integumentary general surgery: Present: warm and dry - Neurologic Present: CN 2-12 grossly intact, normal coordination, normal sensation - Musculoskeletal Present: normal gait, normal posture - Psychiatric Psychiatric general surgery: Present: appropriate, oriented to person, oriented to place, oriented to time, speech is normal, memory intact Date of admission: 08/11/16 17:14 Primary care physician: PCP [place] - Patient Status Disposition: Home, Self-Care Condition: Good Overall status at discharge: patient is back to baseline - Discharge Instructions Instructions: Oxycodone/Acetaminophen (By mouth), Aspirin (By mouth), Laxative , Stool Softeners (By mouth), Clopidogrel (By mouth), Femoropopliteal Bypass (DC ) Follow Up With: Jermaine Bruce MD [Partnered Physician] - 08/19/16 3:50 pm () [place],PCP [Primary Care Provider] - 08/27/16 9:30 am Additional Instructions: Followup with your scheduled outpatient appointment on 08/19/16 at 3:50pm. - Diet and Activity Activity: increase activity as tolerated Diet: advance to your usual diet - Hospital Course Hospital course: Mr. Solano is a 61 year old male with a history of nonspecific claudication. He had never had any vascular surgeries prior to admission. This left foot became numb on 08/10 [facility] He was found to have no blood flow in the left leg with an SHIVANI of zero on the left and 1.07 on the right. He complained of constant pain on the dorsum of the left foot and the medial aspect of the left calf. 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 He underwent left femoral tibial thrombectomy with left femoral endarterectomy and fem-fem bypass with 8mm PTFE on 08/12. He has been progressing well, but was found to have a fever with Tmax of 101.7 just after midnight on 08/14. CBC and chest x-ray 2 views were ordered and showed elevated white count of 13.5 with no acute cardiopulmonary process. The patient was started on Ciprofloxacin 500mg BID started and additional testing of UA was ordered. Albuterol nebs q6 and incentive spirometry ordered. - Time Spent with Patient Total time spent providing and/or coordinating discharge services: Labs on day of discharge: Labs from last 24 hours 08/14/16 08/13/16 08/13/16 03:30 20:07 20:03 APTT 46.4 H D 106.4 H D POC Glucose 95 H 08/13/16 08/13/16 08/13/16 16:31 12:28 11:07 APTT 38.1 H POC Glucose 85 90 H 08/13/16 07:23 APTT POC Glucose 128 H - Impressions ITS Impressions Fluoroscopy 08/12/16 18:17 IMPRESSION: Intraprocedural fluoroscopic spot images as above. See separate procedure report for more information. D/ /12/2016 21:49:46 Christopher Sharp MD / cain Interpreting Provider: Christopher Sharp MD Pelvis X-Ray 08/12/16 18:17 IMPRESSION: Intraprocedural fluoroscopic spot images as above. See separate procedure report for more information. D/ /12/2016 21:49:46 Christopher Sharp MD / cain Interpreting Provider: Christopher Sharp MD <Kunal Manzano - Last Filed: 08/15/16 14:51> Date of Encounter: 08/15/16 Time of Encounter: 14:00 - Discharge Diagnosis (1) Ischemia of left lower extremity Status: Acute Comments: The patient underwent left lower extremity thrombectomy and FEM-FEM bypass. He is afebrile, comfortable and without complaints. His incisions are clean, dry and intact without erythema or drainage. He will be discharged today. General Surgery Exam Initial Vital Signs Temp Pulse Resp BP Pulse Ox 98 F 63 16 177/87 96 08/11/16 14:20 08/11/16 14:20 08/11/16 14:20 08/11/16 14:20 08/11/16 14:20 Date of admission: 08/11/16 17:14 [facility] care [facility] Discharging clinician: Jermaine Bruce Anticipated date of discharge: 08/15/16 - Patient Status Overall status at discharge: patient is back to baseline - Diet and Activity Activity: increase activity as tolerated Diet: advance to your usual diet - Hospital Course Hospital course: Mr. Solano is a 61 year old male - Time Spent with Patient Total time spent providing and/or coordinating discharge services: Labs on day of discharge: Labs from last 24 hours 08/15/16 08/14/16 08/14/16 06:31 20:39 16:14 WBC 13.0 H RBC 4.25 Hgb 13.7 Hct 40.0 MCV 94.1 MCH 32.2 MCHC 34.3 RDW 13.2 Plt Count 163 MPV 11.5 Immature Gran % 0.5 Seg Neutrophils % 78.3 Lymphocytes % 8.7 Monocytes % 11.9 Eosinophils % 0.4 Basophils % 0.2 Neutrophils # 10.2 H Lymphocytes # 1.1 Monocytes # 1.6 H Eosinophils # 0.1 Basophils # 0.0 POC Glucose 104 H 109 H Urine Color Urine Clarity Urine pH Ur Specific Thayer Urine Protein Urine Glucose (UA) Urine Ketones Urine Blood Urine Nitrite Urine Bilirubin Urine Urobilinogen Ur Leukocyte Esterase Ur Culture Indicated? 08/14/16 08/14/16 08/14/16 14:46 11:15 07:37 WBC RBC Hgb Hct MCV MCH MCHC RDW Plt Count MPV Immature Gran % Seg Neutrophils % Lymphocytes % Monocytes % Eosinophils % Basophils % Neutrophils # Lymphocytes # Monocytes # Eosinophils # Basophils # POC Glucose 93 H 111 H Urine Color Yellow Urine Clarity Clear Urine pH 6.5 Ur Specific Thayer 1.013 Urine Protein Negative Urine Glucose (UA) Normal Urine Ketones Negative Urine Blood Negative Urine Nitrite Negative Urine Bilirubin Negative Urine Urobilinogen 2.0 H Ur Leukocyte Esterase Negative Ur Culture Indicated? NO - Impressions ITS Impressions Fluoroscopy 08/12/16 18:17 IMPRESSION: Intraprocedural fluoroscopic spot images as above. See separate procedure report for more information. D/ /12/2016 21:49:46 Christopher Sharp MD / cain Interpreting Provider: Christopher Sharp MD Pelvis X-Ray 08/12/16 18:17 IMPRESSION: Intraprocedural fluoroscopic spot images as above. See separate procedure report for more information. D/ /12/2016 21:49:46 Christopher Sharp MD / earnold Interpreting Provider: Christopher Sharp MD Chest X-Ray 08/14/16 08:05 IMPRESSION: No acute cardiopulmonary process. D/ / Bam Wells MD / Bam Wells MD Interpreting Provider: Bam Wells MD
[2016-08-14 09:34] LABS: Basophils % 0.2 %; Eosinophils % 0.1 %; Immature Granulocytes % 0.4 % (0-4); Immature Platelets 5.7 % (1.1-6.1); Lymphocytes # 0.9 K/mcL (0.6-4.6); Lymphocytes % 6.4 %; Mean Corpuscular HGB Conc 34.5 g/dL (31.6-35.5); Mean Corpuscular Hemoglobin 32.5 pg (28.0-33.3); Mean Corpuscular Volume 94.3 fL (83.0-100.0); Mean Platelet Volume 10.7 fL (9.4-12.4); Monocytes % 7.4 %; Neutrophils # 11.6 K/mcL (1.6-8.9); Platelet Count 163 K/mcL (140-400); Red Blood Count 4.03 M/mcL (4.19-5.50); Red Cell Distribution Width 13.2 % (11.5-14.5); Segmented Neutrophils % 85.5 %
[2016-08-14 09:42] LABS: Hemoglobin 13.1 g/dL (12.9-16.9)
[2016-08-14] MEDS: *HR* OxyCODONE/APAP 5/325 TABLET PO PRN ×2 (10:49→19:39)
[2016-08-14] MEDS ORDERED: Albuterol 2.5 MG/3 ML NEBULIZER ONE (10:57)
[2016-08-14] MEDS: Albuterol 2.5 MG/3 ML NEBULIZER IH SCH ×3 (11:00→21:48)
[2016-08-14] MEDS: *HR* HYDROmorphone (PF) 1 MG/ML SYRINGE IVP PRN ×2 (11:43→16:05)
[2016-08-14 15:08] LABS: Bilirubin,Urine Negative (Negative); Blood,Urine Negative (Negative); Clarity,Urine Clear (Clear); Color,Urine Yellow (Yellow); Glucose,Urine (UA) Normal (Normal); Ketones,Urine Negative (Negative); Leukocyte Esterase,Urine Negative (Negative); Nitrite,Urine Negative (Negative); PH,Urine 6.5 pH Units (5.0-8.0); Protein,Urine Negative (Neg-Trace); Specific Gravity,Urine 1.013 (1.010-1.025)
[2016-08-15] MEDS: Albuterol 2.5 MG/3 ML NEBULIZER IH SCH ×3 (03:49→15:44)
[2016-08-15] MEDS: *HR* OxyCODONE/APAP 5/325 TABLET PO PRN ×2 (03:59→14:05)
[2016-08-15 06:54] LABS: Basophils % 0.2 %; Eosinophils # 0.1 K/mcL (0.0-0.6); Eosinophils % 0.4 %; Hemoglobin 13.7 g/dL (12.9-16.9); Immature Granulocytes % 0.5 % (0-4); Lymphocytes # 1.1 K/mcL (0.6-4.6); Lymphocytes % 8.7 %; Mean Corpuscular HGB Conc 34.3 g/dL (31.6-35.5); Mean Corpuscular Hemoglobin 32.2 pg (28.0-33.3); Mean Corpuscular Volume 94.1 fL (83.0-100.0); Mean Platelet Volume 11.5 fL (9.4-12.4); Monocytes # 1.6 K/mcL (0.0-1.3); Monocytes % 11.9 %; Neutrophils # 10.2 K/mcL (1.6-8.9); Platelet Count 163 K/mcL (140-400); Red Blood Count 4.25 M/mcL (4.19-5.50); Red Cell Distribution Width 13.2 % (11.5-14.5); Segmented Neutrophils % 78.3 %
[2016-08-15] MEDS: Aspirin 81 MG TAB.CHEW PO SCH (08:10)
[2016-08-15 11:15] VITALS: BP 123/73
--- NOTE | 2016-08-15 14:55 | Vascular/[facility] Progress Note ---
Date of Encounter: 08/15/16 Time of Encounter: 14:00 - Assessment and plan (1) Ischemia of left lower extremity Current Visit: Yes Status: Acute Patient is neurovascularly intact and his incisions are healing well. He will be discharged today. - Subjective Interval history: Feeling well without complaints. Vital Signs, Last 4 Hours Temp Pulse Resp BP 08/15/16 11:13 97.8 F 88 18 123/73 - Physical Examination General: Present: Conversant, No Apparent Distress Cardiac: Present: Reg Rate and Rhythm Lungs: Present: Normal Breath Sounds Neuro: Present: Alert and responsive, No focal deficits noted Vascular: Present: Normal capillary refill, Surgical incisions (clean, dry and intact without erythema or drainage). Absent: Cyanosis, Edema Abdomen: Present: Soft Skin: Present: No rashes noted on visualized skin - VTE Reasons for not Prescribing Prophylaxis: Not indicated-Anticoagulated or INR therapeutic Results 08/15/16 06:31 08/11/16 14:43 Lab Results, Last 24 hours 08/15/16 06:31 WBC 13.0 H Hgb 13.7 Hct 40.0 Plt Count 163 Consult Discharge Plan - Plan Instructions: Oxycodone/Acetaminophen (By mouth), Aspirin (By mouth), Laxative , Stool Softeners (By mouth), Clopidogrel (By mouth), Femoropopliteal Bypass (DC ) Additional Instructions: Followup with your scheduled outpatient appointment on 08/19/16 at 3:50pm. Referrals: Jermaine Bruce MD [Partnered Physician] - 08/19/16 3:50 pm () [place],PCP [Primary Care Provider] - 08/27/16 9:30 am Prescriptions: OxyCODONE/APAP 5/325 [Percocet 5/325 MG] 1 each PO Q6HR PRN #30 tablet PRN Reason: Pain Aspirin 81 mg PO DAILY #30 tab.chew Clopidogrel [Plavix] 75 mg PO DAILY #30 tablet Docusate [Colace] 100 mg PO BID #30 capsule
== END 2016-08-15 15:30 | disposition home or self-care (01) | DRG 271 ==
LOC: EMEROO 14:09 → 2NNU 17:14
PROVIDERS: ADMIT Surgery; ATTEND Surgery
PROC: VASFFBG (ICD-10-PCS; 2016-08-12 17:30)

== ENCOUNTER 2019-01-27 09:47 | Inpatient (IN) ==
[2019-01-27] MEDS ORDERED: CeFAZolin Syr 2,000MG/20 ML 2,000 MG/20 ML SYRINGE IVPB ONE (10:22)
[2019-01-27] MEDS ORDERED: Ringers Solution, Lactated 1,000 ML IVC SCH (10:30)
[2019-01-27] MEDS ORDERED: Acetaminophen IV 1,000 MG/100 ML INFUS..BTL IVPB ONE (11:04)
[2019-01-27] MEDS ORDERED: *HR* OxyCODONE Immed Rel 5 MG TABLET PO PRN (11:05)
[2019-01-27] MEDS ORDERED: *HR* Promethazine 25 MG/ML VIAL IVP PRN (11:05)
[2019-01-27] MEDS ORDERED: Albuterol 2.5 MG/3 ML NEBULIZER IH ONE (11:05)
[2019-01-27] MEDS ORDERED: Heparin 1,000 UNITS/500 mL 1,000 ML ONE (11:10)
[2019-01-27] MEDS ORDERED: Vancomycin 1,000 MG, Sodium Chloride IRRigation 1,000 ML IR ONE (11:20)
[2019-01-27] MEDS ORDERED: Heparin 1,000 UNITS/500 mL 0 ML ONE (11:21)
[2019-01-27] MEDS ORDERED: Lidocaine HCL 4 ML Topical Solution (Laryng-O-Jet Kit Sterile Pak) TP ONE (11:28)
[2019-01-27] MEDS ORDERED: Lidocaine -MPF 2% 2 ML VIAL ONE (13:39)
[2019-01-27] MEDS ORDERED: EPHEDrine 50 MG/ML VIAL ONE (13:39)
[2019-01-27] MEDS ORDERED: *HR* Succinylcholine 200 MG/10 ML VIAL IVP ONE (13:39)
[2019-01-27] MEDS ORDERED: Dexamethasone 4 MG/ML VIAL ONE (13:39)
[2019-01-27] MEDS ORDERED: *HR* FentaNYL (PF) 100 MCG/2 ML VIAL ONE ×2 (13:39→13:40)
[2019-01-27] MEDS ORDERED: *HR* Midazolam HCl 2 MG/2 ML VIAL ONE (13:39)
[2019-01-27] MEDS ORDERED: *HR* Heparin 5,000 UNIT/ML VIAL ONE (13:39)
[2019-01-27] MEDS ORDERED: Ondansetron 4 MG/2 ML VIAL ONE (13:39)
[2019-01-27] MEDS ORDERED: *HR* PHENYLEPHRINE 1,000 MCG/10 ML SYRINGE IVP ONE (13:39)
[2019-01-27] MEDS ORDERED: *HR* Propofol 200 MG/20 ML VIAL IVP ONE (13:39)
[2019-01-27] MEDS ORDERED: *HR* HYDROcodone/Acet 5/325 mg TABLET PO PRN (15:58)
[2019-01-27] MEDS ORDERED: Ondansetron 4 MG/2 ML VIAL IVP PRN (15:58)
[2019-01-27] MEDS ORDERED: Acetaminophen 325 MG TABLET PO PRN (15:58)
[2019-01-27] MEDS ORDERED: Naloxone 0.4 MG/ML INJ IVP PRN (15:58)
[2019-01-27] MEDS ORDERED: *HR* Labetalol 20 MG/4 ML SYRINGE IVP PRN (15:58)
[2019-01-27] MEDS: *HR* Metoprolol 5 MG/5 ML VIAL IVP SCH ×2 (18:34→23:33)
[2019-01-28] MEDS ORDERED: *HR* Heparin 5,000 UNIT/ML VIAL SQ SCH ×2 (06:00)
[2019-01-28 06:37] VITALS: BP 133/72
[2019-01-28] MEDS: *HR* Metoprolol 5 MG/5 ML VIAL IVP SCH ×2 (07:22→12:14)
[2019-01-28] MEDS: *HR* OxyCODONE Immed Rel 5 MG TABLET PO PRN ×2 (07:59→12:14)
[2019-01-28] MEDS ORDERED: Aspirin 81 MG TAB.CHEW PO SCH (09:00)
[2019-01-28 10:45] LABS: BUN/Creatinine Ratio 12 (6-26); Blood Urea Nitrogen 11 mg/dL (8-23); Calcium 9.5 mg/dL (8.6-10.3); Carbon Dioxide 26 mEq/L (23-29); Chloride 100 mEq/L (98-107); Glucose 145 mg/dL (70-105); Osmolality,Calculated 284 (280-300); Potassium 3.8 mEq/L (3.5-5.1); Sodium 136 mEq/L (136-145); eGFR For African Americans > 60 (> 60); eGFR For Non-African Americans > 60 (> 60)
[2019-01-28 11:15] LABS: Basophils % 0.1 %; Eosinophils % 0.1 %; Hematocrit 40.3 % (37.5-50.1); Hemoglobin 13.1 g/dL (12.9-16.9); Immature Granulocytes % 0.6 % (0-4); Lymphocytes # 0.9 K/mcL (0.6-4.6); Lymphocytes % 8.6 %; Mean Corpuscular HGB Conc 32.5 g/dL (31.6-35.5); Mean Corpuscular Hemoglobin 30.6 pg (28.0-33.3); Mean Corpuscular Volume 94.2 fL (83.0-100.0); Mean Platelet Volume 10.9 fL (9.4-12.4); Monocytes # 0.4 K/mcL (0.0-1.3); Monocytes % 3.7 %; Neutrophils # 9.2 K/mcL (1.6-8.9); Platelet Count 235 K/mcL (140-400); Red Blood Count 4.28 M/mcL (4.19-5.50); Red Cell Distribution Width 13.1 % (11.5-14.5); Segmented Neutrophils % 86.9 %; White Blood Count 10.6 K/mcL (4.3-11.1)
== END 2019-01-28 12:37 | disposition home or self-care (01) | DRG 253 ==
LOC: SAMDAY 09:47 → 2NNU 15:25
PROVIDERS: ADMIT Student in an Organized Health Care Education/Training Program; ATTEND Surgery
PROC: VASFFBG (ICD-10-PCS; 2019-01-27 11:20)